=== PATIENT | male | born 1985 | race Caucasian/White ===

== ENCOUNTER 2016-08-25 09:56 | Emergency (ER) | payer MEDICAID ==
[2016-08-25 10:14] VITALS: BP 110/76
--- NOTE | 2016-08-25 10:36 | UC ---
Skin Complaint HPI - HPI Summary HPI Summary: The patient comes in today for: 1. Boil: Onset: yesterday. Palliative/provocative: Touching it makes it more painful. Rest makes it better. Moving legs makes it worse. Quality: Burning. Region: Superior right gluteal cleft. Severity: 8/10 Time: Constant. Associated symptoms: FEvers: No temperature was 100. Discharge: Present blood and pus came out last night. He states that he can tolerate cephalosporins. * - History of Current Complaint Chief Complaint: UCSkin Time Seen by Provider: 08/25/16 10:29 Stated Complaint: BOIL Hx Obtained From: Patient - Allergy/Home Medications Allergies/Adverse Reactions: Allergies Allergy/AdvReac Type Severity Reaction Status Date / Time Erythromycin Allergy Severe Anaphylatic Verified 02/03/16 16:53 Shock Penicillins Allergy Severe Anaphylatic Verified 02/03/16 16:52 Shock Home Medications: Home Medications Aluminum Hydroxide-Mag Carb [Gaviscon Extra Strength 160-105 mg] 1 chw PO DAILY PRN 08/25/16 [History Confirmed 08/25/16] Review of Systems Constitutional: Negative Skin: Negative Eyes: Negative ENT: Negative Respiratory: Negative Cardiovascular: Negative Gastrointestinal: Negative Genitourinary: Negative All Other Systems Reviewed And Are Negative: Yes PMH/Surg Hx/FS Hx/Imm Hx Previously Healthy: No Endocrine History Of: Denies: Diabetes, Thyroid Disease, Hyperthyroidism, Hypothyroidism, Dyslipidemia Cardiovascular History Of: Denies: Cardiac Disorders, Hypertension, Pacemaker/ICD, Myocardial Infarction , Congestive Heart Failure, Atrial Fibrillation, Deep Vein Thrombosis, Bleeding Disorders Respiratory History Of: Denies: COPD, Asthma, Bronchitis, Pneumonia, Pulmonary Embolism GI/ History Of: Reports: Gastroesophageal Reflux - No Rx., Ulcer, Gastrointestinal Bleed - He states that he has a history of a bleeding ulcer 6 months ago. 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, coma; oral surgery - Family History Known Family History: Positive: Cardiac Disease, Hypertension - Social History Occupation: Employed Full-time Alcohol Use: None Substance Use Type: Marijuana Substance Use Comment - Amount & Last Used: Daily Smoking Status (MU): Current Every Day Smoker Type: Cigarettes Amount Used/How Often: 1 PPD Length of Time of Smoking/Using Tobacco: >20 years Have You Smoked in the Last Year: Yes Household Exposure Type: Cigarettes - Immunization History Most Recent Influenza Vaccination: Physical Exam Triage Information Reviewed: Yes Appearance: Well-Appearing, No Pain Distress, Well-Nourished Vital Signs: Initial Vital Signs Temp 98.4 F 08/25/16 10:09 Pulse 87 08/25/16 10:09 Resp 20 08/25/16 10:09 BP 110/76 08/25/16 10:09 Pulse Ox 97 08/25/16 10:09 Vital Signs Reviewed: Yes Eyes: Positive: Conjunctiva Clear. Negative: Discharge ENT: Positive: Hearing grossly normal. Negative: Pharyngeal erythema, Nasal congestion, Nasal drainage, TM bulging, TM dull, TM red, Tonsillar swelling, Tonsillar exudate Dental: Negative: Gross Decay/Caries @, Dental Fracture @ Neck: Positive: Supple, Nontender, No Lymphadenopathy. Negative: Nuchal Rigidity Respiratory: Positive: Chest non-tender, Lungs clear, No respiratory distress, No accessory muscle use. Negative: Crackles, Wheezing Cardiovascular: Positive: RRR, No Murmur Abdomen Description: Positive: Nontender, No Organomegaly, Soft. Negative: Distended, Guarding Musculoskeletal: Positive: Strength Intact, ROM Intact, No Edema Neurological: Positive: Alert, Muscle Tone Normal Psychological: Positive: Age Appropriate Behavior, Consolable Skin: Positive: rashes - He has an erythematous area of the right superior gluteal cleft. IT is about 2 x 1 cm. However, it is tender. There is a mass sensation under it which is less than 1 cm. There is no fluctuance.. Negative: breakdown Course/Dx - Course Course Of Treatment: Patient was told that we could cut into it if he wanted, but that I did not anticipate much pus coming out. He was told that he may do well just to take antibiotics and hot compresses and be re-evaluated in 2-3 days. - Differential Diagnoses - Skin Complaint Differential Diagnoses: Abscess, Cellulitis - Diagnoses Provider Diagnoses: Pilonidal cyst infection/abscess/cellulitis Discharge - Discharge Plan Condition: Stable Disposition: HOME Patient Education Materials: Pilonidal Cyst (GEN), Abscess (ED), Cellulitis (ED ) Forms: *Work Release Referrals: No Primary Care Phys,NOPCP [Primary Care Provider] -
[2016-08-25] MEDS ORDERED: cefTRIAXone VIAL(*) 1,000 MG VIAL IM ONE (11:05)
[2016-08-25] MEDS ORDERED: Lidocaine 1% MPF* 2 ML VIAL ONE (11:17)
== END 2016-08-25 11:35 | disposition home or self-care (01) ==
LOC: UCEAST 09:56
DX: L05.01 Pilonidal cyst with abscess (principal); F17.210 Nicotine dependence, cigarettes, uncomplicated; Z88.0 Allergy status to penicillin
CPT/HCPCS: 96372; 99212; G0463; J0696

== ENCOUNTER 2016-09-13 18:52 | Emergency (ER) | payer MEDICAID ==
--- NOTE | 2016-09-13 20:12 | UC ---
Complaint Male HPI - HPI Summary HPI Summary: PT WAS WALKING IN THE HOUSE TODAY 5PM WHEN HE TRIPPED ON FURNITURE AND FELL SIDEWAYS. LEFT LEG WAS PULLED AWKWARDLY AND PT HAS SEVERE LEFT GROIN PAIN. ALSO REPORTS LEFT TESTICLE PAIN. DENIES ANY URINARY SX. REPORTS HE HAS HAD THESE SX SINCE HE DID THE SAME THING ABOUT 5 MONTHS AGO. HE DID NOT SEEK MEDICAL ATTENTION AT THAT TIME. THE SYMPTOMS IMPROVED AND WERE LOW LEVEL UNTIL TODAY WHEN HE RE-INJURED HIMSELF. ALSO REPORTS WHAT SOUNDS LIKE A RUPTURE OF THE LEFT SPERMATIC CORD "SOME YEARS" AGO THAT WAS SURGICALLY REPAIRED. - History of Current Complaint Chief Complaint: UCGeneralIllness Stated Complaint: GROIN/TESTICLE PAIN Time Seen by Provider: 09/13/16 19:47 Hx Obtained From: Patient, Family/Music Mixer - GIRLFRIEND Onset/Duration: Sudden Onset, Lasting Hours, Still Present Timing: Constant Severity Initially: Moderate Severity Currently: Moderate Pain Intensity: 7 Pain Scale Used: 0-10 Numeric Location: Testicle - LEFT GROIN AND TESTICLE Character: Sharp Aggravating Factor(s): Palpation Associated Signs And Symptoms: Negative: Diaphoresis, Back Pain, Fever, Hematuria, Dysuria, Constipation, Blood in Stool, Rectal Pain, Appetite, Nausea , Vomiting(# Of Episodes =), Penile Swelling, Penile Discharge - Allergies/Home Medications Allergies/Adverse Reactions: Allergies Allergy/AdvReac Type Severity Reaction Status Date / Time Erythromycin Allergy Severe Anaphylatic Verified 09/13/16 19:12 Shock Penicillins Allergy Severe Anaphylatic Verified 09/13/16 19:12 Shock PMH/Surg Hx/FS Hx/Imm Hx Endocrine History Of: Denies: Diabetes, Thyroid Disease, Hyperthyroidism, Hypothyroidism, Dyslipidemia Cardiovascular History Of: Denies: Cardiac Disorders, Hypertension, Pacemaker/ICD, Myocardial Infarction , Congestive Heart Failure, Atrial Fibrillation, Deep Vein Thrombosis, Bleeding Disorders Respiratory History Of: Denies: COPD, Asthma, Bronchitis, Pneumonia, Pulmonary Embolism GI/ History Of: Reports: Gastroesophageal Reflux - No Rx., Ulcer, Gastrointestinal Bleed - He states that he has a history of a bleeding ulcer 6 months ago. 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, coma; oral surgery - Family History Known Family History: Positive: Cardiac Disease, Hypertension - Social History Alcohol Use: None Substance Use Type: Marijuana Substance Use Comment - Amount & Last Used: Daily Smoking Status (MU): Current Every Day Smoker Type: Cigarettes Amount Used/How Often: 1 PPD Length of Time of Smoking/Using Tobacco: >20 years Have You Smoked in the Last Year: Yes Household Exposure Type: Cigarettes - Immunization History Most Recent Influenza Vaccination: Review of Systems Constitutional: Negative Skin: Negative Respiratory: Negative Cardiovascular: Negative Gastrointestinal: Negative Genitourinary: Other - LEFT GROIN AND TESTICLE PAIN All Other Systems Reviewed And Are Negative: Yes Physical Exam Triage Information Reviewed: Yes Appearance: Well-Appearing, No Pain Distress - MILD, Well-Nourished Vital Signs: Initial Vital Signs Temp 98 F 09/13/16 19:06 Pulse 79 09/13/16 19:06 Resp 16 09/13/16 19:06 BP 121/73 09/13/16 19:06 Pulse Ox 96 09/13/16 19:06 Vital Signs Reviewed: Yes Eyes: Positive: Conjunctiva Clear ENT: Positive: Hearing grossly normal Neck: Positive: Supple Respiratory: Positive: No respiratory distress, No accessory muscle use Cardiovascular: Positive: Pulses Normal Abdomen Description: Positive: Nontender, Soft. Negative: CVA Tenderness (R), CVA Tenderness (L), Distended, Guarding Musculoskeletal: Positive: No Edema, Other: - EXQUISITELY TTP ADDUCTOR MUSCLES LEFT LEG Neurological: Positive: Alert Psychological: Positive: Age Appropriate Behavior Skin: Negative: rashes UC Physical Exam Vital Signs On Initial Exam: Initial Vitals Temp Pulse Resp BP Pulse Ox 98 F 79 16 121/73 96 09/13/16 19:06 09/13/16 19:06 09/13/16 19:06 09/13/16 19:06 09/13/16 19:06 - Genitalia Exam Male Genitalia: Circumcised Male Genitalia Cont.: Left: Testicles Tender - MILDLY TENDER LEFT TESTICLE. EXQUISITELY TTP LEFT SPERMATIC CORD., Right: Testicles Non-Tender, Bilateral: Testicles Descended, Testicles w/o Swelling Complaint Male Course/Dx - Course Course Of Treatment: DISCUSSED TRANSFER TO ER TO FURTHER EVALUATE TESTICLE PAIN. PT DECLINES. ADVISED OF CONCERN FOR LOSS OF TESTICLE. PT CONTINUES TO DECLINES TRANSFER. AMA FORM SIGNED. - Differential Dx/Diagnosis Differential Diagnosis/HQI/PQRI: Epididymitis, Prostatitis, Other - SPERMATIC CORD RUPTURE, TESTICULAR INJURY Provider Diagnoses: 1. LEFT GROIN STRAIN. 2. ACUTE LEFT TESTICULAR PAIN Discharge - Discharge Plan Condition: Stable Disposition: AGAINST MEDICAL ADVICE Prescriptions: Cyclobenzaprine TAB* [Flexeril TAB*] 10 mg PO BID PRN #30 tab PRN Reason: Pain Naproxen [Naproxen EC] 500 mg PO BID PRN #30 tab PRN Reason: Pain Patient Education Materials: Groin Strain (ED), Testicle Pain (ED) Referrals: No Primary Care Phys,NOPCP [Primary Care Provider] - Additional Instructions: YOU HAVE BEEN ADVISED TO GO TO THE ER FOR FURTHER EVALUATION OF YOUR ACUTE SCROTAL PAIN. YOU HAVE DECLINED. GO TO THE ER WITHOUT FAIL IF YOUR SYMPTOMS DO NOT IMPROVE.
[2016-09-13 20:51] VITALS: BP 124/76
== END 2016-09-13 21:05 | disposition left against medical advice (07) ==
LOC: UCEAST 18:52
DX: S39.011A Strain of muscle, fascia and tendon of abdomen, initial encounter (principal); N50.812 Left testicular pain; W01.0XXA Fall on same level from slipping, tripping and stumbling without subsequent striking against object, initial encounter; K21.9 Gastro-esophageal reflux disease without esophagitis; F12.90 Cannabis use, unspecified, uncomplicated; F17.210 Nicotine dependence, cigarettes, uncomplicated; Z88.3 Allergy status to other anti-infective agents; Z88.0 Allergy status to penicillin
CPT/HCPCS: 81003; 99212; G0463

== ENCOUNTER 2016-09-21 13:01 | Emergency (ER) | payer MEDICAID ==
[2016-09-21 13:14] VITALS: BP 121/68
--- NOTE | 2016-09-21 13:25 | UC ---
Complaint Male HPI - HPI Summary HPI Summary: Seen in 09/13/16 because of L inner thigh pain and L scrotal pain. L scrotal pain had been in conjunction with muscular pain/injury only, was advised to go to ED for ultrasound on 09/13 but pt declined because of wait times. Comes in today because now feels L scrotal swelling and pain, but has not had any pain in L leg, so worried this pain is something new. Denies urinary sx or hematuria. Stool has been occ hard to pass along with "diarrhea," but denies prolonged constipation. No new injuries to the groin. - History of Current Complaint Chief Complaint: UCGeneralIllness Stated Complaint: PERSONAL COMPLAINT Time Seen by Provider: 09/21/16 13:05 Hx Obtained From: Patient Onset/Duration: Gradual Onset, Lasting Days Timing: Constant Severity Initially: Mild Severity Currently: Moderate Location: Scrotum Character: Constant Pressure Aggravating Factor(s): Palpation, Nothing - movement Alleviating Factor(s): Scrotal Elevation - rest Associated Signs And Symptoms: Negative: Diaphoresis, Back Pain, Fever, Hematuria, Dysuria, Blood in Stool, Rectal Pain, Nausea, Vomiting(# Of Episodes =), Penile Swelling - Allergies/Home Medications Allergies/Adverse Reactions: Allergies Allergy/AdvReac Type Severity Reaction Status Date / Time Erythromycin Allergy Severe Anaphylatic Verified 09/13/16 19:12 Shock Penicillins Allergy Severe Anaphylatic Verified 09/13/16 19:12 Shock PMH/Surg Hx/FS Hx/Imm Hx Endocrine History Of: Denies: Diabetes, Thyroid Disease, Hyperthyroidism, Hypothyroidism, Dyslipidemia Cardiovascular History Of: Denies: Cardiac Disorders, Hypertension, Pacemaker/ICD, Myocardial Infarction , Congestive Heart Failure, Atrial Fibrillation, Deep Vein Thrombosis, Bleeding Disorders Respiratory History Of: Denies: COPD, Asthma, Bronchitis, Pneumonia, Pulmonary Embolism GI/ History Of: Reports: Gastroesophageal Reflux - No Rx., Ulcer, Gastrointestinal Bleed - He states that he has a history of a bleeding ulcer 6 months ago. 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, coma; oral surgery - Family History Known Family History: Positive: Unknown, Cardiac Disease, Hypertension - Social History Occupation: Employed Full-time Alcohol Use: None Substance Use Type: Marijuana Substance Use Comment - Amount & Last Used: Daily Smoking Status (MU): Current Every Day Smoker Type: Cigarettes Amount Used/How Often: 1 PPD Length of Time of Smoking/Using Tobacco: >20 years Have You Smoked in the Last Year: Yes Household Exposure Type: Cigarettes Cessation Counseling: Patient Advised to Stop - Immunization History Most Recent Influenza Vaccination: season Review of Systems Constitutional: Negative Skin: Negative Eyes: Negative ENT: Negative Respiratory: Negative Cardiovascular: Negative Gastrointestinal: Negative Genitourinary: Other - L scrotal pain Motor: Negative Neurovascular: Negative Musculoskeletal: Negative Neurological: Negative Psychological: Negative All Other Systems Reviewed And Are Negative: Yes Physical Exam Triage Information Reviewed: Yes Appearance: Well-Appearing, Well-Nourished Vital Signs: Initial Vital Signs Temp 98.1 F 09/21/16 13:07 Pulse 72 09/21/16 13:07 Resp 16 09/21/16 13:07 BP 121/68 09/21/16 13:07 Pulse Ox 100 09/21/16 13:07 Vital Signs Reviewed: Yes Eye Exam: Normal Eyes: Positive: Conjunctiva Clear ENT Exam: Normal ENT: Positive: Normal ENT inspection, Hearing grossly normal, Pharynx normal, TMs normal Dental Exam: Normal Dental: Negative: Percussion Tenderness @ Neck exam: Normal Respiratory Exam: Normal Respiratory: Positive: Chest non-tender, Lungs clear, Normal breath sounds, No respiratory distress, No accessory muscle use Cardiovascular Exam: Normal Cardiovascular: Positive: RRR, No Murmur Abdomen Description: Negative: CVA Tenderness (R), CVA Tenderness (L) Musculoskeletal Exam: Normal Musculoskeletal: Positive: Strength Intact, ROM Intact Neurological Exam: Normal Neurological: Positive: Alert Psychological Exam: Normal Skin Exam: Normal - Additional Comments Genital exam performed, testes descended bilat and nontender. No hernia palpated with standing valsalva. Minimal swelling to L hemiscrotum. Complaint Male Course/Dx - Differential Dx/Diagnosis Provider Diagnoses: L scrotal pain Discharge - Discharge Plan Condition: Stable Disposition: HOME Patient Education Materials: Scrotal Pain (ED) Referrals: Matthew Caballero MD [Medical Doctor] - 2 Weeks Additional Instructions: The ultrasound shows no signs of serious problem. I am sending some labwork today. Please follow up with the urologist for additional testing and examination to determine the cause of your pain.
--- NOTE | 2016-09-21 14:18 | RAD ---
INDICATION: Left scrotal pain COMPARISON: None TECHNIQUE: Duplex interrogation of the scrotum was performed. FINDINGS: Testicles: The testicles are Normal in size and echogenicity. There is no evidence of testicular mass. There is symmetric flow on Doppler interrogation. There is no evidence of torsion.. The right testis measures 5.4 x 2.6 x 3.4 cm and the left 4.9 x 2.4 x 3.5 cm. There is symmetric flow on Doppler interrogation. Epididymides: There multiple epididymal cysts. The largest measures 0.5 cm on the right and 0.4 cm on the left The epididymides are normal in size. There is symmetric flow on Doppler interrogation. The right epididymal head measures 1.6 x 1.2 cm and the left 1.1 x 1.0 cm. Hydroceles: None. Varicoceles: None. Other: None. IMPRESSION: NO EVIDENCE OF TESTICULAR MASS OR TORSION. EPIDIDYMAL CYSTS.
== END 2016-09-21 14:34 | disposition home or self-care (01) ==
LOC: UCEAST 13:01
DX: N50.82 Scrotal pain (principal); L72.0 Epidermal cyst; M79.652 Pain in left thigh; Z88.1 Allergy status to other antibiotic agents; Z88.0 Allergy status to penicillin; F17.210 Nicotine dependence, cigarettes, uncomplicated
CPT/HCPCS: 76870; 81003; 87491; 87591; 99211; G0463

== ENCOUNTER 2018-04-30 10:38 | Emergency (ER) | payer MEDICAID, OTHER ==
[2018-04-30 10:48] VITALS: BP 137/86
[2018-04-30] MEDS ORDERED: Lidocaine 1%* 5 ML VIAL INJ ONE (11:22)
--- NOTE | 2018-04-30 11:24 | UC ---
Skin Complaint HPI - HPI Summary HPI Summary: 32 year old man comes in with a chief complaint of a skin abscess in his gluteal cleft. Started about 3 days ago it swollen its tender. He started draining yesterday. He also has a right inguinal area swelling that's also tender. No fevers or chills. He's had a gluteal abscess in the past that has been treated with antibiotics and it has drained. DENIES History of MRSA. - History of Current Complaint Chief Complaint: UCSkin Time Seen by Provider: 04/30/18 11:15 Stated Complaint: SKIN COMPLAINT Pain Intensity: 9 - Allergy/Home Medications Allergies/Adverse Reactions: Allergies Allergy/AdvReac Type Severity Reaction Status Date / Time erythromycin base Allergy anaph Verified 04/30/18 10:45 Penicillins Allergy anaph Verified 04/30/18 10:45 PMH/Surg Hx/FS Hx/Imm Hx Previously Healthy: Yes Other History Of: Negative For: HIV, Hepatitis B, Hepatitis C, Anticoagulant Therapy - Surgical History Surgical History: Unable to Obtain/Confirm Surgery Procedure, Year, and Place: Unable to recall due to TBI, coma; oral surgery - Family History Known Family History: Positive: Unknown, Cardiac Disease, Hypertension - Social History Alcohol Use: None Substance Use Type: Marijuana Substance Use Comment - Amount & Last Used: Daily Smoking Status (MU): Heavy Every Day Tobacco Smoker Type: Cigarettes Amount Used/How Often: 1 PPD Length of Time of Smoking/Using Tobacco: >20 years Have You Smoked in the Last Year: Yes Household Exposure Type: Cigarettes - Immunization History Most Recent Influenza Vaccination: season Review of Systems All Other Systems Reviewed And Are Negative: Yes Constitutional: Positive: Negative Skin: Positive: Other - SEE HPI Eyes: Positive: Negative ENT: Positive: Negative Respiratory: Positive: Negative Cardiovascular: Positive: Negative Gastrointestinal: Positive: Negative Genitourinary: Positive: Negative. Negative: Dysuria, Frequency, Urgency, Vaginal/Penile Discharge Motor: Positive: Negative Neurovascular: Positive: Negative Musculoskeletal: Positive: Negative Neurological: Positive: Negative Psychological: Positive: Negative Is Patient Immunocompromised?: No Physical Exam Triage Information Reviewed: Yes Appearance: Well-Appearing, Well-Nourished, Pain Distress - MILD Vital Signs: Initial Vital Signs Temp 98 F 04/30/18 10:45 Pulse 57 04/30/18 10:45 Resp 16 04/30/18 10:45 BP 137/86 12/10/18 10:45 Pulse Ox 100 04/30/18 10:45 Vital Signs Reviewed: Yes Eye Exam: Normal Eyes: Positive: Conjunctiva Clear Neck exam: Normal Neck: Positive: Supple Respiratory: Positive: No respiratory distress Musculoskeletal Exam: Normal Musculoskeletal: Positive: Strength Intact, ROM Intact Neurological Exam: Normal Neurological: Positive: Alert, Muscle Tone Normal Psychological Exam: Normal Psychological: Positive: Normal Response To Family, Age Appropriate Behavior Skin: Positive: Other - On the upper gluteal cleft at the level of the sacrum there is a 2 cm swelling that is firm to palpation with surrounding erythema and pus drainage. There is a 1 cm firm swelling in the right inguinal area that is mobile. There is no penile lesions or scrotal lesions. Normal testicular exam. Procedures - Incision and Drainage Right Buttocks Anesthesia: Topical, Lidocaine - 1% Instrument(s): Scalpel Packing: Gauze Course/Dx - Course Course Of Treatment: Copious amounts of pus was expressed during the incision and drainage. Wound culture obtained. We'll start the patient on clindamycin. Patient and a quarter inch iodoform gauze. Patient will follow-up his primary care doctor return here if not better improved. Right inguinal swollen area I presume is lymphadenopathy. I would expect this to be reactive to the infection and I would expected to improve while on the antibiotics. Does not improve patient needs to get this rechecked. - Diagnoses Provider Diagnosis: Abscess of right buttock, Swelling of inguinal region Discharge - Sign-Out/Discharge Documenting (check all that apply): Patient Departure All imaging exams completed and their final reports reviewed: No Studies - Discharge Plan Condition: Stable Disposition: HOME Prescriptions: Clindamycin Cap(NF) [Clindamycin Cap 300 mg Cap(NF)] 300 mg PO Q6H #40 cap Patient Education Materials: Abscess (ED) Referrals: [facility] [place] [facility] [place]] Additional Instructions: FOLLOW UP WITH YOUR DOCTOR IF NOT COMPLETELY IMPROVED. GET RECHECKED FOR ANY WORSENING OF YOUR CONDITION OR QUESTIONS OR CONCERNS. - Billing Disposition and Condition Condition: STABLE Disposition: Home
--- NOTE | 2018-05-03 15:19 | UC ---
- Progress Note Progress Note: Wound culture from April 30, 2018 comes back as positive for FINEGOLDIA MAGNA. Nursing to call patient to determine if he is improving or not. If he continues to improve he is to follow-up his primary care doctor if he's not improving then he should get further evaluated in the emergency department. Also is not improving please call microbiology laboratory and requests susceptibility testing of the bacteria. Course/Dx - Diagnoses Provider Diagnoses: Abscess of right buttock, Swelling of inguinal region Discharge - Sign-Out/Discharge Documenting (check all that apply): Patient Departure All imaging exams completed and their final reports reviewed: No Studies - Discharge Plan Condition: Stable Disposition: HOME Prescriptions: Clindamycin Cap(NF) [Clindamycin Cap 300 mg Cap(NF)] 300 mg PO Q6H #40 cap Patient Education Materials: Abscess (ED) Forms: *Work Release Referrals: [facility] [Outside] Additional Instructions: FOLLOW UP WITH YOUR DOCTOR IF NOT COMPLETELY IMPROVED. GET RECHECKED FOR ANY WORSENING OF YOUR CONDITION OR QUESTIONS OR CONCERNS. - Billing Disposition and Condition Condition: STABLE Disposition: Home
--- NOTE | 2018-05-05 09:23 | UC ---
- Progress Note Progress Note: Lab report: as previously noted: MRSA negative; Brent Powersa; patient on clindamycin. No change in treatment at this time. Damon Patel MD Course/Dx - Diagnoses Provider Diagnoses: Abscess of right buttock, Swelling of inguinal region Discharge - Sign-Out/Discharge Documenting (check all that apply): Post-Discharge Follow Up All imaging exams completed and their final reports reviewed: No Studies - Discharge Plan Condition: Stable Disposition: HOME Prescriptions: Clindamycin Cap(NF) [Clindamycin Cap 300 mg Cap(NF)] 300 mg PO Q6H #40 cap Patient Education Materials: Abscess (ED) Forms: *Work Release [place]errals: [facility] [place] [facility] [place]] Additional Instructions: FOLLOW UP WITH YOUR DOCTOR IF NOT COMPLETELY IMPROVED. GET RECHECKED FOR ANY WORSENING OF YOUR CONDITION OR QUESTIONS OR CONCERNS. - Billing Disposition and Condition Condition: STABLE Disposition: Home
== END 2018-04-30 12:16 | disposition home or self-care (01) ==
LOC: UCEAST 10:38
DX: L02.31 Cutaneous abscess of buttock (principal); R19.03 Right lower quadrant abdominal swelling, mass and lump; Z88.0 Allergy status to penicillin; Z88.1 Allergy status to other antibiotic agents; F17.210 Nicotine dependence, cigarettes, uncomplicated
CPT/HCPCS: 10060; 87070; 87076; 87205; 87640; 87641; 99212; G0463